=== PATIENT | male | born 1960 | race Two or more races ===

== ENCOUNTER 2018-05-20 07:04 | Day surgery (SDC) | payer BC ==
[2018-05-20 07:58] LABS: ADD MAN DIFF? NO
[2018-05-20 08:02] LABS: BASOPHILS % 0.3 % (0.0-2.0); EOSINOPHILS # 0.1 10^3/ul (0.0-0.5); HEMATOCRIT 49.2 % (42.0-52.0); HEMOGLOBIN 16.1 g/dl (14.0-18.0); LYMPHOCYTES # 1.7 10^3/ul (0.8-2.9); LYMPHOCYTES % 22.8 % (15.0-51.0); MEAN CORPUSCULAR HEMOGLOBIN 26.4 pg (29.0-33.0); MEAN CORPUSCULAR HGB CONC 32.7 g/dl (32.0-37.0); MEAN CORPUSCULAR VOLUME 80.8 fl (82.0-101.0); MEAN PLATELET VOLUME 10.5 fl (7.4-10.4); MONOCYTE # 0.7 10^3/ul (0.3-0.9); MONOCYTES % 9.8 % (0.0-11.0); NEUTROPHIL # 4.8 10^3/ul (1.6-7.5); NEUTROPHILS % 65.8 % (39.0-77.0); PLATELET COUNT 272 10^3/UL (140-415); RED BLOOD COUNT 6.09 10^6/ul (4.70-6.10); RED CELL DISTRIBUTION WIDTH 14.1 % (11.5-14.5)
[2018-05-20 08:02] LABS: WHITE BLOOD COUNT 7.2 10^3/ul (4.8-10.8)
[2018-05-20 08:38] LABS: ALANINE AMINOTRANSFERASE 20 IU/L (13-69); ALBUMIN 4.2 g/dl (3.3-4.9); ALKALINE PHOSPHATASE 94 IU/L (42-121); ANION GAP 11 (5-13); ASPARTATE AMINO TRANSFERASE 27 IU/L (15-46); BILIRUBIN,INDIRECT 0.5 mg/dl (0-1.1); BILIRUBIN,TOTAL 0.5 mg/dl (0.2-1.3); BLOOD UREA NITROGEN 14 mg/dl (7-20); CALCIUM 9.5 mg/dl (8.4-10.2); CARBON DIOXIDE 27 mmol/L (21-31); CHLORIDE 103 mmol/L (97-110); CHOL/HDL RATIO 4.8 RATIO; CHOLESTEROL 199 mg/dl (100-200); CREATININE 0.75 mg/dl (0.61-1.24); Estimated GFR > 60 mL/min (>60); GLUCOSE 203 mg/dl (70-220); HDL CHOLESTEROL 41 mg/dl (28-71); LDL CHOLESTEROL,CALCULATED 118 mg/dl; POTASSIUM 4.9 mmol/L (3.5-5.1); SODIUM 141 mmol/L (135-144); TOTAL PROTEIN 7.7 g/dl (6.1-8.1); TRIGLYCERIDES 201 mg/dl (0-149)
[2018-05-20 08:44] LABS: INR 0.88; PT RATIO 0.9
[2018-05-20 08:45] LABS: PARTIAL THROMBOPLASTIN TIME 25.3 Sec (23.0-35.0)
[2018-05-20 08:59] LABS: FREE T4 (FREE THYROXINE) 1.14 ng/dl (0.64-1.79)
[2018-05-20] MEDS ORDERED: IODIXANOL LOCM 100 ML BTL ×2 (10:17→11:11)
[2018-05-20] MEDS ORDERED: LIDOCAINE 1% (MDV) 20 ML INJ (10:17)
[2018-05-20] MEDS ORDERED: FENTAnyl 50 MCG/ML VIAL (10:17)
[2018-05-20] MEDS ORDERED: MIDAZOLAM 1 MG/ML 2 ML INJ (10:17)
[2018-05-20] MEDS ORDERED: SOD CHLORIDE 0.9% 1,000 ML IV (11:46)
[2018-05-20] MEDS ORDERED: ACETAMINOPHEN 325 MG TAB PO (12:00)
[2018-05-20] MEDS ORDERED: HOLD all METFORMIN and METFORMIN CONTAINING medications for 48 hours post procedure. Chec XX (12:00)
== END 2018-05-20 14:11 | disposition home or self-care (01) ==
LOC: SDS 07:04
DX: I25.10 Atherosclerotic heart disease of native coronary artery without angina pectoris (principal); E11.9 Type 2 diabetes mellitus without complications
CPT/HCPCS: 71045; 80053; 80061; 82962; 84439; 84443; 85025; 85610; 85730; 93458; 93571